=== PATIENT | female | born 1950 | race Caucasian/White ===

== ENCOUNTER → 2017-03-04 | Outpatient (CLI) | payer OTHER, MEDICARE | LOC: FIMAGING 11:34 | PROVIDERS: ATTEND Internal Medicine | DX: R05 Cough (principal); Z85.3 Personal history of malignant neoplasm of breast; M41.86 Other forms of scoliosis, lumbar region; M51.36 Other intervertebral disc degeneration, lumbar region ==

== ENCOUNTER → 2017-04-30 | Outpatient (CLI) | payer OTHER, MEDICARE | LOC: FIMAGING 09:04 | PROVIDERS: ATTEND Internal Medicine Hematology & Oncology | DX: N63.10 Unspecified lump in the right breast, unspecified quadrant (principal); Z85.3 Personal history of malignant neoplasm of breast | CPT/HCPCS: G0204 ==

== ENCOUNTER → 2017-06-09 | Outpatient (CLI) | payer OTHER, MEDICARE | LOC: FIMAGING 08:42 | PROVIDERS: ATTEND Internal Medicine Hematology & Oncology | DX: Z13.820 Encounter for screening for osteoporosis (principal); M85.89 Other specified disorders of bone density and structure, multiple sites ==

== ENCOUNTER → 2018-06-02 | Outpatient (CLI) | payer OTHER | LOC: FIMAGING 07:39 | PROVIDERS: ATTEND Internal Medicine | DX: Z12.31 Encounter for screening mammogram for malignant neoplasm of breast (principal); Z85.3 Personal history of malignant neoplasm of breast ==

== ENCOUNTER → 2018-06-19 | Outpatient (CLI) | payer OTHER | LOC: FIMAGING 09:46 | PROVIDERS: ATTEND Internal Medicine Hematology & Oncology | DX: C50.211 Malignant neoplasm of upper-inner quadrant of right female breast (principal); N63.11 Unspecified lump in the right breast, upper outer quadrant; Z98.890 Other specified postprocedural states ==

== ENCOUNTER → 2018-07-01 | Outpatient (CLI) | payer OTHER ==
[~2018-07-01] MED LIST: BUPIVACAINE 0.5% 30 ML SDV ONE; LIDOCAINE 1% 300 MG/30 ML SDV ONE
== END ==
LOC: FIMAGING 08:41
PROVIDERS: ATTEND Radiology Diagnostic Radiology
DX: R92.8 Other abnormal and inconclusive findings on diagnostic imaging of breast (principal); Z85.3 Personal history of malignant neoplasm of breast